=== PATIENT | female | born 1990 | race Caucasian/White ===

== ENCOUNTER 2018-05-22 18:06 | Outpatient (REF) | payer BC, SELFPAY ==
[2018-05-25 14:45] LABS: Chlamydia Result Negative; GC Result Negative; Specimen Description CERVIX
== END 2018-05-22 18:26 ==
LOC: LBN 18:06
PROVIDERS: PCP General Practice; Visit Provider Obstetrics & Gynecology
DX: Z11.3 Encounter for screening for infections with a predominantly sexual mode of transmission (principal)
CPT/HCPCS: 87491; 87591

== ENCOUNTER 2018-09-08 11:29 | Emergency (ER) | payer SELFPAY ==
[2018-09-08] VITALS (15 sets, daily range): BP systolic 94–108; BP diastolic 60–71; PULSE 86–113; RESP 8–28; TEMP 37.1; O2SAT 98–100
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
[2018-09-08] MEDS: Normal Saline 1,000 ML 1000 ML IV (12:45)
[2018-09-08 12:54] LABS: Abs Immature Grans 0.01 k/cumm (0.0-0.09); Absolute Basophil Count 0.06 k/cumm (0.0-0.2); Absolute Eosinophil Count 0.12 k/cumm (0.0-0.7); Absolute Lymphocyte Count 2.71 k/cumm (1.2-3.4); Absolute Monocyte Count 0.76 k/cumm (0.11-0.7); Absolute Neutrophil Count 6.13 k/cumm (1.2-6.7); Basophils % 0.6; Eosinophils % 1.2; HCT 41.7 % (36.0-46.0); HGB 13.9 g/dL (12.0-15.5); Immature Grans % 0.1; Lymphocytes % 27.7; Mean Corp. HGB Concentration 33.3 g/dL (32.0-36.0); Mean Corpuscular Hemoglobin 29.7 pg (27.0-33.0); Mean Corpuscular Volume 89.1 fL (80-95); Mean Platelet Volume 11.9 fL (8.0-11.0); Monocytes % 7.8; Neutrophils % 62.6; Platelet Count 250 x1000/uL (130-400); RBC 4.68 m/cumm (4.00-5.20); White Blood Cell Count 9.79 k/cumm (4.4-10.8)
[2018-09-08 13:12] LABS: ALT 18 U/L (12-78); AST 10 U/L (15-37); Albumin 3.8 g/dL (3.4-5.0); Alkaline Phosphatase 68 U/L (46-116); Anion Gap 9.2 mmol/L (3-11); BUN 9 mg/dL (7-18); Bilirubin, Total 0.3 mg/dL (0.2-1.0); CO2 26.8 mmol/L (21.0-32.0); CREATININE 0.89 mg/dL (0.55-1.02); Calcium 8.9 mg/dL (8.5-10.1); Chloride 109 mmol/L (98-107); Glucose 86 mg/dL (70-100); Potassium 4.3 mmol/L (3.5-5.1); Sodium 145 mmol/L (136-145); Total Protein 7.1 g/dL (6.4-8.2)
[2018-09-08] MEDS: Omnipaque 350 MG/ML 100 ML BTL IJ (14:36)
[2018-09-08] MEDS: Cyclobenzaprine 10 MG TAB PO (15:14)
== END 2018-09-08 16:21 | disposition home or self-care (01) ==
PROVIDERS: Emergency Provider Physician Assistant
DX: M54.6 Pain in thoracic spine (principal); M54.5 Low back pain; M25.551 Pain in right hip; M25.552 Pain in left hip; S60.131A Contusion of right middle finger with damage to nail, initial encounter; V47.5XXA Car driver injured in collision with fixed or stationary object in traffic accident, initial encounter; W23.1XXA Caught, crushed, jammed, or pinched between stationary objects, initial encounter
CPT/HCPCS: 36415; 74177; 80053; 96361; 96374; 99285; 71260; 72125; 73130; 85025; 99284; J3490

== ENCOUNTER 2019-08-02 15:02 | Outpatient (REF) | payer MEDICAID, SELFPAY ==
[2019-08-03 13:17] LABS: Chlamydia Result Negative (Negative)
[2019-08-03 15:23] LABS: GC Result Negative (Negative)
== END 2019-08-02 15:22 ==
LOC: LBN 15:02
PROVIDERS: Visit Provider Nurse Practitioner Women's Health
DX: Z11.3 Encounter for screening for infections with a predominantly sexual mode of transmission (principal)
CPT/HCPCS: 87491; 87591

== ENCOUNTER 2019-08-10 14:23 | Outpatient (REF) | payer MEDICAID, SELFPAY ==
--- NOTE | 2019-08-10 13:10 | PAPFT_PTH ---
PATIENT: Rody Cain LOC: [facility] U#:[id number] AGE/SX: 29/F ROOM: RE08/10/[address]: Jacquelyn Morin NP : 1990 BED: DIS: 08/10/2019 SPEC #: [id number] RECD: 08/10/19 18:09 STATUS: BUSTER [place] #: [id number] [place]: 08/10/19 13:[address]: Jacquelyn Morin NP DEPT: [facility] Cytology RECD BY: Marely Doe ENTERED: 08/10/19 18:09 SP TYPE: PAPFT HORACIO DR: Unknown,Unknown Tissues: 1 - CX/ENDOCX FOR PAP SMEARS Procedures: PAP THIN PREP/[facility] Screening HPV DNA PROBE Comments: [id number]
== END 2019-08-10 14:43 ==
LOC: LBN 14:23
PROVIDERS: Visit Provider Nurse Practitioner Women's Health
DX: Z12.4 Encounter for screening for malignant neoplasm of cervix (principal)
CPT/HCPCS: 88142; 87624

== ENCOUNTER 2020-06-02 15:01 | Emergency (ER) | payer BC, MEDICAID, SELFPAY ==
--- NOTE | 2020-06-02 15:04 | ED.GENADUL_ITS ---
Discharge Plan Disposition Patient Disposition: HOME Condition: Improving Discharge Details Clinical Impression: Back pain, Nausea, Elevated liver enzymes Primary Care Provider: Leoncio Morrison ED Provider: Sonia Dela Cruz Home Meds and New Rx's Prescriptions: Continued Mirena 20 mcg/24 hr (5 years) intrauterine device 1 insert IY ONCE RF: 0 pantoprazole [Protonix] 40 mg tablet,delayed release (DR/EC) 40 mg PO DAILY RF: 0 acyclovir 400 mg tablet 400 mg PO QID PRN (Reason: HSV) RF: 0 clonazepam 1 mg tablet 1 mg PO BID PRNRF: 0 lamotrigine [Lamictal] 25 mg tablet 50 mg PO DAILY RF: 0 spironolactone 25 mg tablet 25 mg PO DAILY RF: 0 dextroamphetamine-amphetamine 25 mg capsule,extended release 24hr 25 mg PO QAM MDD 1 Qty: 30 RF: 0 Discharge Instructions Instructions: Acute Nausea and Vomiting (ED), Back Pain (ED) Additional Instructions: Drink plenty of fluids and get plenty of rest. Alternate ice and heat to the affected area(s) several times daily for 20 minutes at a time. Take the Zofran that you have at home as needed directed for nausea and vomiting. You can use [id number] Lidoderm patches as needed and directed for pain. Call your primary care doctor's office on Friday morning to schedule a follow-up appointment for reevaluation and for recheck of your liver enzymes. Return immediately to the emergency department if you develop any worsening or new concerning symptoms. Stand Alone Forms: Work Release Discharge Data Discharge Physician: Sonia Dela Cruz Medical Decision Making 1520 -- 29-year-old female with a history of anxiety, depression, GERD, on Suboxone currently for previous history of opiate abuse presents for lower back pain, worse on left side with radiation to left groin, intermittent radiation to both legs, nausea, chills and fatigue since yesterday. Heart rate 100s. She is afebrile and appears nontoxic but uncomfortable. She has left lower quadrant and epigastric tenderness. She has bilateral CVA tenderness. No focal deficits. Neurovascular intact. Differential diagnosis includes UTI, pyelonephritis, ovarian cyst, diverticulitis, kidney stone, muscle strain, radiculopathy. Will place an IV, bolus IV fluids, screening labs, urinalysis, urine , CT abdomen pelvis and give Toradol and Zofran and reassess. 1640 --labs reviewed. Normal white blood cell count. Urinalysis negative for infection. Elevation of alk phos, AST and ALT compared to previous. Patient reassessed and she feels much better. CT reviewed and negative. Review of patient's medications note that spironolactone can cause hepatotoxicity. Patient states she has been on this for the past year and a half for her skin. Advised that she discuss with her primary care doctor whether to continue taking this and to recheck her liver enzymes. Discussed with patient that there does not appear to be an acute etiology for her symptoms at this time, and that they could be related to a developing viral process and to return here immediately with any worsening or new concerning symptoms such as fever, persistent vomiting or worsening pain. She feels good to go home. She requests a work note. Medical Records Medical records reviewed: Yes I reviewed the patient's medical records. Imaging Data Radiologic Study: Radiologist's impression: CT Abdomen And Pelvis With Contrast Exam date and time: 06/02/2020 4:33 PM Age: 29 years old Clinical indication: Patient HX: Lower back pain, worse on left, nausea, chills TECHNIQUE: Imaging protocol: Computed tomography of the abdomen and pelvis with intravenous contrast. COMPARISON: CT Abdomen^CAP WITH (Adult) 09/08/2018 2:32 PM FINDINGS: Liver: Unremarkable. No mass. Gallbladder and bile ducts: Status post cholecystectomy. Mild dilatation of the intrahepatic and extrahepatic bile ducts is unchanged and likely secondary to the post cholecystectomy state. Pancreas: Unremarkable. No ductal dilation. Spleen: Unremarkable. No splenomegaly. Adrenals: Normal. No mass. Kidneys and ureters: Unremarkable. No stones. No hydronephrosis. Stomach and bowel: Unremarkable. No obstruction. No mucosal thickening. Appendix: No evidence of appendicitis. Intraperitoneal space: Unremarkable. No free air. No significant fluid collection. Vasculature: Unremarkable. No abdominal aortic aneurysm. Lymph nodes: Unremarkable. No enlarged lymph nodes. Urinary bladder: Unremarkable as visualized. Reproductive: An IUD is present within the uterus. The adnexa are unremarkable. Bones/joints: No acute fracture. Soft tissues: Unremarkable. IMPRESSION: No acute abnormality. Lab Data Lab results reviewed: Yes I reviewed the patient's lab results. Labs: Laboratory Tests Range/Units 06/02/20 06/02/2006/02/20 15:45 15:46 15:46 WBC (4.4-10.8) 10^3/uL 6.33 RBC (3.93-5.22) 10^6/uL 4.44 Hgb (11.2-15.7) g/dL 13.2 Hct (36.0-46.0) % 40.3 MCV (80-95) fL 90.8 MCH (27.0-33.0) pg 29.7 MCHC (32.0-36.0) % 32.8 RDW (11.7-14.6) % 12.6 Plt Count (130-400) 10^3/uL 235 MPV (8.0-11.0) fL 11.4 H Immature Gran % 0.3 Neutrophils % 61.9 Lymphocytes % 25.6 Monocytes % 8.1 Eosinophils % 3.5 Basophils % 0.6 Nucleated RBC % % 0 Absolute Neutrophils (1.2-6.7) 10^3/uL 3.92 Absolute Lymphocytes (1.2-3.4) 10^3/uL 1.62 Absolute Monocytes (0.1-0.8) 10^3/uL 0.51 Absolute Eosinophils (0.0-0.7) 10^3/uL 0.22 Absolute Basophils (0.0-0.2) 10^3/uL 0.04 Sodium (136-145) mmol/L 140 Potassium (3.5-5.1) mmol/L 3.8 Chloride (98-107) mmol/L 105 Carbon Dioxide (21.0-32.0) mmol/L 30.7 Anion Gap (3-11) mmol/L 4.3 BUN (7-18) mg/dL 9 Creatinine (0.55-1.02) mg/dL 0.81 Estimated GFR/1.73 m2 (mL/min/1.73m2) >= 60.00 Glucose (74-106) mg/dL 99 Calcium (8.5-10.1) mg/dL 8.3 L Total Bilirubin (0.2-1.0) mg/dL 0.6 AST (15-37) U/L 211 H ALT (14-59) U/L 185 H Alkaline Phosphatase (46-116) U/L 140 H Total Protein (6.4-8.2) g/dL 6.5 Albumin (3.4-5.0) g/dL 3.4 Urine Color (Yellow) Yellow Urine Clarity (Clear) Clear Urine pH (5-8) 7.5 Ur Specific [place] (1.005-1.025) 1.020 Urine Protein (Negative) mg/dL Negative Urine Ketones (Negative) mg/dL Negative Urine Blood (Negative) Trace-intact H Urine Nitrite (Negative) Negative Urine Bilirubin (Negative) Negative Urine Urobilinogen (Up TO 0.2) EU/dL 2.0 H Ur Leukocyte Esterase (Negative) Negative Urine RBC (0-2) HPF Negative Urine WBC (0-5) HPF 0-2 Ur Epithelial Cells (Negative) HPF Many Urine Crystals (Negative) HPF Negative Urine Bacteria (Negative) HPF Few Urine Casts (Negative) LPF Negative Urine Mucus (Negative) Negative Ur Culture Indicated? No/sq. contamination Urine Glucose (Negative) mg/dL Negative HPI General Mode of arrival: ambulatory . Date/Time Provider Initiated Documentation: 06/02/20 15:02 . Limitations to Documentation: no limitations . Information obtained by: patient . HPI Narrative: Patient is a 29-year-old female w/ a h/o anxiety, depression, GERD on Suboxone for history of opiate abuse who presents for lower back pain, nausea, chills and fatigue for the past 2 days. She does admit to radiation to both of her thighs with standing and walking. She does admit to radiation around to her left groin. She has a history of chronic interstitial cystitis and has chronic urinary frequency but states this is no worse than usual. She states she is doing frequent heavy lifting at work but denies any known injury. She states she has taken Toradol in the past without any adverse reaction. She took Tylenol without relief. She denies any known fever, vomiting, vaginal discharge, leg weakness or numbness, saddle anesthesia, bowel or bladder incontinence. Related Data Home Medications Medication Instructions Recorded Confirmed levonorgestrel 20 mcg/24 hours (5 1 insert IY ONCE 05/22/18 06/02/20 yrs) 52 mg intrauterine device dextroamphetamine-amphetamine ER 25 mg PO QAM #30 cap MDD 1 11/20/18 06/02/20 25 mg 24hr capsule,extend release pantoprazole 40 mg tablet,delayed 40 mg PO DAILY 08/02/19 06/02/20 release acyclovir 400 mg tablet 400 mg PO QID PRN tab 10/20/19 06/02/20 clonazepam 1 mg tablet 1 mg PO BID PRN tab 10/20/19 06/02/20 lamotrigine 25 mg tablet 50 mg PO DAILY tab 10/20/19 06/02/20 spironolactone 25 mg tablet 25 mg PO DAILY 10/20/19 06/02/20 Previous Rx's Medication Instructions Recorded dextroamphetamine-amphetamine ER 25 mg PO QAM #30 cap MDD 1 11/20/18 25 mg 24hr capsule,extend release Allergies Allergy/AdvReac Type Severity Reaction Status Date / Time codeine Allergy Unverified 06/02/20 15:15 diphenhydramine HCl AdvReac Severe restless Verified 06/02/20 15:15 [From Benadryl] leg syndrome morphine AdvReac Severe Verified 06/02/20 15:15 NSAIDS (Non-Steroidal AdvReac Severe gastric Verified 06/02/20 15:15 Anti-Inflamma ulcer escitalopram [From Lexapro] AdvReac Intermediate nausea, Unverified 06/02/20 15:15 lip curling sertraline [From Zoloft] AdvReac Intermediate nausea, Unverified 06/02/20 15:15 lip curling fluoxetine [From Prozac] AdvReac Mild yawning Unverified 06/02/20 15:15 General SHELIA: 3 Review of Systems All systems reviewed & are unremarkable except as noted in HPI and below Constitutional Constitutional: Reports as per HPI, Denies chills and Denies fever(s) Eyes Eyes: Denies blurry vision ENT Ears, Nose, Mouth, and Throat: Denies dizziness, Denies sore throat and Denies throat swelling Cardiovascular Cardiovascular: Denies chest pain and Denies dyspnea Respiratory Respiratory: Denies cough and Denies dyspnea Gastrointestinal Gastrointestinal: Reports abdominal pain, Denies diarrhea, Reports nausea and Denies vomiting Genitourinary Genitourinary: Denies hematuria and Denies dysuria Musculoskeletal Musculoskeletal: Reports back pain and Denies numbness Integumentary/Breasts Skin/Breast: Denies lesions and Denies rash Neurologic Neurologic: Denies dizziness, Denies localized weakness and Denies numbness Allergic/Immunologic Allergic/Immunologic: Denies throat swelling [facility] Medical History (Updated 06/02/20 @ 17:27 by Sonia Dela Cruz DO) Anxiety Depression GERD (gastroesophageal reflux disease) Peptic ulcer disease Surgical History History of dental surgery S/P wrist surgery Social History Smoking/Tobacco Use Status: Current every day Tobacco: How many years used: 10 Quit status: has quit before Alcohol Intake: current Alcohol Intake frequency: a few times a month Drug use: Occasionally Substance use type: marijuana Details: using suboxone daily- take homes Do you feel safe at home: Yes Do you feel safe in your relationship?: Yes Female Reproductive History Menstrual control method: progestin IUCD (lot#[id number] exp 10/2020) History History Para 1 Hx # Term Pregnancies Multiple births Hx # Pregnancies Ectopic pregnancies AB induced 1 Hx Number of Living Children AB spontaneous Exam Const General: cooperative and no acute distress HENMT Head: normal to inspection Face and sinus: normal facial exam Eyes General: appearance normal, both eyes and all related structures Pupils: PERRL EOM: EOM intact bilaterally Neck Neck: normal visual inspection and No submandibular swelling Lymphatic: no lymphadenopathy noted Chest Chest: normal inspection of the chest and no tenderness Resp Effort & Inspection: normal respiratory effort and able to speak in complete sentences Auscultation: clear to auscultation bilaterally Cardio Rate: regular rate Rhythm: regular rhythm GI Inspection: normal to inspection Palpation: soft, not firm, not rigid and nontender Auscultation: normal bowel sounds Back/Spine/Pelvis Back: CVA tenderness (Bilaterally) Thoracic/Lumbar Spine: thoracic and lumbar spine normal to inspection Pelvis: no pain with anterior-posterior compression Skin General skin exam: no rashes or lesions noted Neuro General: patient alert, patient awake and patient oriented x3 Cognition: normal cognition Speech: speech normal Motor: muscle tone normal throughout and strength 5/5 throughout Sensory Exam: no sensory deficits noted DTR's: Rt Patellar: 1+, Lt Patellar: 1+, Rt Ankle: 1+ and Lt Ankle: 1+ Plantar Reflexes: Equivocal: bilateral (Negative Babinski bilaterally) Extrem General: normal to inspection, full ROM, capillary refill normal, no calf tenderness bilaterally and no edema Psych Appearance: grossly normal Mental Status: mental status grossly normal Speech and Movement: speech and movement normal Affect: normal affect
[2020-06-02 15:09] VITALS: BP 98/70; PULSE 106; RESP 20; TEMP 36.7; O2SAT 98
--- NOTE | 2020-06-02 15:30 | DI.CT_ITS ---
EXAM: CT ABDOMEN PELVIS W INDICATION: lower back pain, worse on left, nausea, chills. TECHNIQUE: FINDINGS: CT examination of the abdomen and pelvis was performed with a bolus infusion of 74 cc of Omnipaque 35 0. Images obtained through the lung bases are unremarkable. Liver, spleen and pancreas appear normal. Gallbladder has been surgically removed. No biliary dilatation. Adrenals and kidneys are unremarkable. Urinary bladder unremarkable. Abdominal aorta is of normal diameter and no major vascular abnormality is seen. No abdominal wall hernia. No abdominal or pelvic adenopathy. M[employer] structures appear intact with an IUD in place in the uterine midline.. Appendix is normal. No ev idence of diverticulitis or bowel obstruction. IMPRESSION: Negative examination of the abdomen and pelvis. RADIATION DOSE DELIVERED: 508.76mGy.cm Total DLP 508.76mGy.cm Total DLP
[2020-06-02] MEDS: Ondansetron 4 MG/2 ML VIAL IVP (15:55)
[2020-06-02] MEDS: Ketorolac 30 MG/ML VIAL IVP (15:55)
[2020-06-02] MEDS: Normal Saline 1,000 ML 1000 ML IV (15:56)
[2020-06-02] MEDS: Normal Saline Flush 10 ML SYR IVP (15:56)
[2020-06-02 15:59] LABS: Bilirubin Negative (Negative); Blood Trace-intact (Negative); Clarity Clear (Clear); Glucose Negative (Negative); Ketones Negative (Negative); Leukocyte Esterase Negative (Negative); Nitrite Negative (Negative); pH 7.5 (5-8)
[2020-06-02 16:06] LABS: Abs Immature Grans 0.02 10^3/uL (0.0-0.06); Absolute Basophil Count 0.04 10^3/uL (0.0-0.2); Absolute Eosinophil Count 0.22 10^3/uL (0.0-0.7); Absolute Lymphocyte Count 1.62 10^3/uL (1.2-3.4); Absolute Monocyte Count 0.51 10^3/uL (0.1-0.8); Absolute Neutrophil Count 3.92 10^3/uL (1.2-6.7); Basophils % 0.6; Eosinophils % 3.5; HCT 40.3 % (36.0-46.0); HGB 13.2 g/dL (11.2-15.7); Immature Grans % 0.3; Lymphocytes % 25.6; MCH 29.7 pg (27.0-33.0); MCHC 32.8 % (32.0-36.0); MCV 90.8 fL (80-95); MPV 11.4 fL (8.0-11.0); Monocytes % 8.1; Neutrophils % 61.9; Nucleated RBC 0 %; Platelet Count 235 10^3/uL (130-400); RBC 4.44 10^6/uL (3.93-5.22); RDW 12.6 % (11.7-14.6); RDW-SD 41.5 fL; WBC 6.33 10^3/uL (4.4-10.8)
[2020-06-02 16:09] LABS: Bacteria Few HPF (Negative); C & S Indicated? No/Sq. Contamination; Casts Negative LPF (Negative); Crystals Negative HPF (Negative); Epithelial Cells Many HPF (Negative); Mucus Negative (Negative); RBC Negative HPF (0-2); WBC 0-2 HPF (0-5)
[2020-06-02 16:20] LABS: ALT 185 U/L (14-59); AST 211 U/L (15-37); Albumin 3.4 g/dL (3.4-5.0); Alkaline Phosphatase 140 U/L (46-116); Anion Gap 4.3 mmol/L (3-11); BUN 9 mg/dL (7-18); Bilirubin, Total 0.6 mg/dL (0.2-1.0); CO2 30.7 mmol/L (21.0-32.0); CREATININE 0.81 mg/dL (0.55-1.02); Calcium 8.3 mg/dL (8.5-10.1); Chloride 105 mmol/L (98-107); Glucose 99 mg/dL (74-106); Potassium 3.8 mmol/L (3.5-5.1); Sodium 140 mmol/L (136-145); Total Protein 6.5 g/dL (6.4-8.2)
--- NOTE | 2020-06-02 16:53 | DI.VRAD_ITS ---
PROCEDURE INFORMATION: Exam: CT Abdomen And Pelvis With Contrast Exam date and time: 06/02/2020 4:33 PM Age: 29 years old Clinical indication: Patient HX: Lower back pain, worse on left, nausea, chills TECHNIQUE: Imaging protocol: Computed tomography of the abdomen and pelvis with intravenous contrast. COMPARISON: CT Abdomen^CAP WITH (Adult) 09/08/2018 2:32 PM FINDINGS: Liver: Unremarkable. No mass. Gallbladder and bile ducts: Status post cholecystectomy. Mild dilatation of the intrahepatic and extrahepatic bile ducts is unchanged and likely secondary to the post cholecystectomy state. Pancreas: Unremarkable. No ductal dilation. Spleen: Unremarkable. No splenomegaly. Adrenals: Normal. No mass. Kidneys and ureters: Unremarkable. No stones. No hydronephrosis. Stomach and bowel: Unremarkable. No obstruction. No mucosal thickening. Appendix: No evidence of appendicitis. Intraperitoneal space: Unremarkable. No free air. No significant fluid collection. Vasculature: Unremarkable. No abdominal aortic aneurysm. Lymph nodes: Unremarkable. No enlarged lymph nodes. Urinary bladder: Unremarkable as visualized. Reproductive: An IUD is present within the uterus. The adnexa are unremarkable. Bones/joints: No acute fracture. Soft tissues: Unremarkable. IMPRESSION: No acute abnormality. Dictated and Authenticated by: Koby Anne MD. Ordering:ANITA Scott MD
[2020-06-02] MEDS: Normal Saline 500 ML IV (16:54)
[2020-06-02 16:59] VITALS: BP 85/49; PULSE 80; RESP 20; O2SAT 100
== END 2020-06-02 17:30 | disposition home or self-care (01) ==
PROVIDERS: Emergency Provider Physician Assistant; PCP Counselor Mental Health
DX: R11.0 Nausea (principal); R10.32 Left lower quadrant pain; R74.8 Abnormal levels of other serum enzymes; M54.5 Low back pain
CPT/HCPCS: 80053; 81025; 96361; 96374; 96375; 99285; 74177; 81003; 81015; 85025; J1885; J2405

== ENCOUNTER 2021-04-27 09:02 | Outpatient (REF) | payer BC, MEDICAID, SELFPAY ==
[2021-04-30 17:17] LABS: COVID-19 RT-PCR Result Not Detected ((See Note))
== END 2021-04-27 09:03 | disposition home or self-care (01) ==
LOC: LBN 09:02
PROVIDERS: PCP Counselor Mental Health; Visit Provider Family Medicine
DX: Z20.822 Contact with and (suspected) exposure to COVID-19 (principal)
CPT/HCPCS: U0003

== ENCOUNTER 2021-08-16 11:46 | Emergency (ER) | payer BC, MEDICAID, SELFPAY ==
[2021-08-16] VITALS (18 sets, daily range): BP systolic 96–108; BP diastolic 50–72; PULSE 90–119; RESP 13–23; TEMP 36.8; O2SAT 100
--- NOTE | 2021-08-16 11:45 | RT.EKG_ITS ---
APPROVED REPORT Exam: Resting ECG Reason for Exam: ? seratonin syndrome Patient Location: E HR:95 bpm ECG Measurements Heart Rate 95 AXIS MN 121 P 50 QRSd 86 QRS 78 QT 387 T 69 QTc 487 Conclusion Sinus rhythm...normal P axis, V-rate 60- 99
[2021-08-16] MEDS: Normal Saline 1,000 ML 1000 ML IV (12:18)
--- NOTE | 2021-08-16 12:23 | W.ED.GENAD ---
Discharge Plan Disposition Patient Disposition: HOME Condition: Stable Discharge Details Clinical Impression: Tachycardia, Anxiousness Primary Care Provider: Leoncio Morrison ED Provider: Endy Morin Home Meds and New Rx's Prescriptions: New Vyvanse 40 mg capsule 40 mg PO DAILY Qty: 14 RF: 0 lorazepam 1 mg tablet 1 mg PO TID PRNQty: 14 RF: 0 Continued Mirena 20 mcg/24 hr (5 years) intrauterine device 1 insert IY ONCE RF: 0 acyclovir 400 mg tablet 400 mg PO QID PRN (Reason: HSV) RF: 0 clonazepam 1 mg tablet 1 mg PO BID PRNRF: 0 spironolactone 25 mg tablet 25 mg PO DAILY RF: 0 multivitamin Tablet 1 tab PO DAILY RF: 0 spironolactone 100 mg tablet 100 mg PO HS RF: 0 propranolol 60 mg Capsule,Extended Release 24 Hr 60 mg PO QHS RF: 0 Discontinued doxepin 25 mg capsule 25 - 50 mg PO HS PRNRF: 0 Vyvanse 50 mg capsule 50 mg PO DAILY RF: 0 Discharge Instructions Additional Instructions: Your blood work was reassuring, you had no findings to suggest severe serotonin syndrome I sent in a 40mg daily vyvanse prescription for you tolerated this better stop taking doxepin follow up with Dr. Morrison if you feel more ill, have difficulty breathing or persistent vomit return to the emergency department Medical Decision Making 31 yo female with hx of anxiety, adhd, gerd, who comes in with chief complaint of not feeling well, anxiety, sweats intermittently for the past week or so. She was switched from adderral to vyvanse last month and then had doxepin started at night for sleep issues. She took several doses but didn't feel it was helping her so stopped. She has had issues sleeping, feeling her skin crawl and sweats. She went to urgent care who felt she may be experiencing serotonin syndrome so was refferred here. She appears anxious on exam, stable vital signs. She has no ocular clonus, diaphoresis, spontaneous clonus or diaphoresis or tremors here so feel this is less likely or at most has very mild serotonin syndrome. I feel her symptoms could be from anxiety vs side effect of vyvanse. Will evaluate for electrolyte abnormalities and treat with ativan and reassess. pt stable and feels improved after ativan, HR now 90 and still no clonus or other abnormalities. I suspect this was more anxiety vs medication side effect and not serotonin syndrome. She is requesting to go down on her vyvanse, states she tolerated 40mg daily better so will provide this and short course of prn ativan until she sees her psychiatrist on 08/20. HAs no si/hi and doesn't require mental health screening by [facility] currently Differential Diagnosis Differential Diagnosis: anxiety, medication reaction, serotonin syndrome HPI General Mode of arrival: ambulatory. Date/Time Provider Initiated Documentation: 08/16/21 11:56. Limitations to Documentation: no limitations. Information obtained by: patient. History of Present Illness 31 year old F presents to the emergency department with the chief complaint of not sleeping well, described as moderate, Patient started experiencing this week(s) (1) and it has been intermittent. No relieving factors improve symptom(s), No exacerbating factors reported . Patient notes other (anxious, sweats). Patient did receive the following treatments prior to arrival, none Related Data Home Medications Medication Instructions Recorded Confirmed levonorgestrel 20 mcg/24 hours (7 1 insert IY ONCE 05/22/18 08/16/21 yrs) 52 mg intrauterine device acyclovir 400 mg tablet 400 mg PO QID PRN tab 10/20/19 08/16/21 clonazepam 1 mg tablet 1 mg PO BID PRN tab 10/20/19 08/16/21 spironolactone 25 mg tablet 25 mg PO DAILY 10/20/19 08/16/21 lisdexamfetamine [Vyvanse] 40 mg PO DAILY #14 cap 08/16/21 lorazepam 1 mg PO TID PRN #14 tab 08/16/21 multivitamin 1 tab PO DAILY 08/16/21 08/16/21 propranolol 60 mg PO QHS 08/16/21 08/16/21 spironolactone 100 mg PO HS 08/16/21 08/16/21 Previous Rx's Medication Instructions Recorded lisdexamfetamine [Vyvanse] 40 mg PO DAILY #14 cap 08/16/21 lorazepam 1 mg PO TID PRN #14 tab 08/16/21 Allergies Allergy/AdvReac Type Severity Reaction Status Date / Time codeine Allergy Unverified 08/16/21 12:06 diphenhydramine HCl AdvReac Severe restless Verified 08/16/21 12:06 [From Benadryl] leg syndrome morphine AdvReac Severe Verified 08/16/21 12:06 NSAIDS (Non-Steroidal AdvReac Severe gastric Verified 08/16/21 12:06 Anti-Inflamma ulcer escitalopram [From Lexapro] AdvReac Intermediate nausea, Unverified 08/16/21 12:06 lip curling sertraline [From Zoloft] AdvReac Intermediate nausea, Unverified 08/16/21 12:06 lip curling fluoxetine [From Prozac] AdvReac Mild yawning Unverified 08/16/21 12:06 General Stated Complaint: GenMedical SHELIA: 3 Review of Systems All systems reviewed & are unremarkable except as noted in HPI and below Constitutional Constitutional: Denies chills, Denies fever(s) and Denies weakness Cardiovascular Cardiovascular: Denies chest pain and Denies dyspnea Respiratory Respiratory: Denies cough and Denies dyspnea Gastrointestinal Gastrointestinal: Denies abdominal pain and Denies vomiting Musculoskeletal Musculoskeletal: Denies joint swelling Neurologic Neurologic: Denies weakness PFSH All Active Problems (Updated 08/16/21 @ 13:47 by Endy Morin MD) Tachycardia (Acute) Anxiousness (Chronic) Fatigue (Acute) Shortness of breath (Acute) Cough (Acute) Interstitial cystitis (Acute) Herpes simplex vulvovaginitis (Acute 10/24/17) Onset 09/2017. Medical History (Updated 08/16/21 @ 13:47 by Endy Morin MD) Anxiety Depression GERD (gastroesophageal reflux disease) Peptic ulcer disease Surgical History History of dental surgery S/P wrist surgery Social History Smoking/Tobacco Use Status: Current every day Tobacco Type: cigarettes Tobacco: How many years used: 10 Quit status: has quit before Smoking risk assessment performed?: Yes Alcohol Intake: current Alcohol Intake frequency: a few times a month Drug use: Occasionally Substance use type: marijuana Do you feel safe at home: Yes Do you feel safe in your relationship?: Yes Female Reproductive History Menstrual control method: progestin IUCD (lot#[id number] exp 10/2020) History History Para 1 Hx # Term Pregnancies Multiple births Hx # Pregnancies Ectopic pregnancies AB induced 1 Hx Number of Living Children AB spontaneous Exam Const General: no acute distress and anxious Orientation: alert HENMT Head: normal to inspection Ears: external ears normal General nose exam: external nose normal Mouth: moist mucous membranes Eyes General: appearance normal, both eyes and all related structures Neck Neck: normal visual inspection Resp Effort & Inspection: normal respiratory effort and able to speak in complete sentences Cardio Rate: regular rate Skin General skin exam: no rashes or lesions noted Neuro General: patient alert and patient oriented x3 Extrem General: normal to inspection Psych Mental Status: mental status grossly normal Course Vital Signs Vital signs: Vital Signs Temperature 36.8 C 08/16/21 11:57 Pulse 98 H 08/16/21 11:57 Respiratory Rate 23 08/16/21 11:57 Blood Pressure 108/72 08/16/21 11:57 Pulse Oximetry 100 08/16/21 11:57 Temperature 36.8 C 08/16/21 11:57 Temperature Source Temporal Artery Scan 08/16/21 11:57 Pulse 98 H 08/16/21 11:57 Respiratory Rate 23 08/16/21 11:57 Respiratory Effort Non-Labored 08/16/21 12:04 Blood Pressure 108/72 08/16/21 11:57 Blood Pressure Position Supine 08/16/21 11:57 Pulse Oximetry 100 08/16/21 11:57 Oxygen Delivery Method Room Air 08/16/21 11:57 Oxygen Flow Rate 0 08/16/21 11:57 Pain Level 0 08/16/21 11:57 PAWSS Have you Been Recently Intoxicated or Drunk Within the Last 30 days?: No Have you Ever Experienced Previous Episodes of Alcohol Withdrawal?: No Have you ever Experienced Withdrawal Seizures?: No Have you ever Experienced Delirium Tremens(DT)s?: No Have you ever undergone Alcohol Rehabilitation Treatment (i.e, inpt ot outpatient treatment programs)?: No Have you ever Experienced Blackouts?: No Have you ever Combined Alcohol with other Downers within the last 90 days?: No Have you ever Combined Alcohol with any other Substance of Abuse during the last 90 days?: No Positive Blood Alcohol level on Presentation? [PCS.BAL]: No Evidence of Increased Autonomic Activity (i.e. HR>120, tremor, sweating, agitation, nausea)?: No Result: 0
[2021-08-16 12:31] LABS: Abs Immature Grans 0.03 10^3/uL (0.0-0.06); Absolute Basophil Count 0.07 10^3/uL (0.0-0.2); Absolute Eosinophil Count 0.21 10^3/uL (0.0-0.7); Absolute Lymphocyte Count 2.49 10^3/uL (1.2-3.4); Absolute Monocyte Count 0.58 10^3/uL (0.1-0.8); Absolute Neutrophil Count 5.55 10^3/uL (1.2-6.7); Basophils % 0.8; Eosinophils % 2.4; HCT 42.1 % (36.0-46.0); HGB 13.8 g/dL (11.2-15.7); Immature Grans % 0.3; Lymphocytes % 27.9; MCH 29.2 pg (27.0-33.0); MCHC 32.8 % (32.0-36.0); MPV 10.4 fL (8.0-11.0); Monocytes % 6.5; Neutrophils % 62.1; Nucleated RBC 0 %; Platelet Count 319 10^3/uL (130-400); RBC 4.73 10^6/uL (3.93-5.22); RDW 13.3 % (11.7-14.6); RDW-SD 43.6 fL; WBC 8.93 10^3/uL (4.4-10.8)
[2021-08-16 12:52] LABS: Salicylate < 2.8 mg/dL (<2.8)
[2021-08-16 12:54] LABS: ALT 27 U/L (14-59); AST 14 U/L (15-37); Acetaminophen < 2 ug/mL (10-30); Albumin 3.8 g/dL (3.4-5.0); Alkaline Phosphatase 59 U/L (46-116); Anion Gap 7.3 mmol/L (3-11); BUN 10 mg/dL (7-18); Bilirubin, Total 0.6 mg/dL (0.2-1.0); CO2 27.7 mmol/L (21.0-32.0); CREATININE 0.7 mg/dL (0.55-1.02); Calcium 8.7 mg/dL (8.5-10.1); Chloride 104 mmol/L (98-107); Creatine Kinase 55 U/L (26-192); Glucose 95 mg/dL (74-106); Magnesium 2.2 mg/dL (1.8-2.4); Potassium 3.9 mmol/L (3.5-5.1); Sodium 139 mmol/L (136-145); TSH (W/Ref FT4) 1.49 uIU/mL (0.36-3.74); Total Protein 7.1 g/dL (6.4-8.2)
[2021-08-16] MEDS: LORazepam 2 MG/ML VIAL 1 MG IVP (12:54)
[2021-08-16] MEDS: Normal Saline Flush 10 ML SYR IVP (12:55)
[2021-08-16 13:05] LABS: ETHANOL BLOOD < 3.0 mg/dL (<10)
[2021-08-16] MEDS: Ondansetron O.D.T. 4 MG TABEF PO (14:06)
== END 2021-08-16 14:07 | disposition home or self-care (01) ==
PROVIDERS: Emergency Provider Emergency Medicine; PCP Counselor Mental Health
DX: R00.0 Tachycardia, unspecified (principal); F41.9 Anxiety disorder, unspecified; R61 Generalized hyperhidrosis; F32.A Depression, unspecified
CPT/HCPCS: 80053; 80307; 81025; 82550; 93005; 96361; 96374; 99284; 80320; 80329; 83735; 84443; 85025; 93010; J2060

== ENCOUNTER 2021-12-13 17:27 | Emergency (ER) | payer BC, MEDICAID, SELFPAY ==
[2021-12-13] VITALS (8 sets, daily range): BP systolic 89–101; BP diastolic 58–73; PULSE 85–111; RESP 13–18; TEMP 36.2–36.6; O2SAT 98–100
--- NOTE | 2021-12-13 17:15 | RT.EKG_ITS ---
APPROVED REPORT Exam: Resting ECG Reason for Exam: chest pain Patient Location: E HR:118 bpm ECG Measurements Heart Rate 118 AXIS NC 141 P 69 QRSd 69 QRS 64 QT 337 T 59 QTc 473 Conclusion Sinus tachycardia...rate> 99. Sinus. Normal axis. No STEMI. I have reviewed and interpreted ECG and agree with software generated interpretation.
--- NOTE | 2021-12-13 17:57 | W.ED.GENAD ---
Discharge Plan Disposition Patient Disposition: HOME Condition: Improving Discharge Details Clinical Impression: Palpitations, Anxiety Primary Care Provider: Leoncio Morrison ED Provider: Sonia Dela Cruz Home Meds and New Rx's Prescriptions: Continued Mirena 20 mcg/24 hr (5 years) intrauterine device 1 insert IY ONCE 0RF acyclovir 400 mg tablet 400 mg PO QID PRN (Reason: HSV) 0RF Label Comments: not taking clonazepam 1 mg tablet 1 mg PO BID PRN0RF Label Comments: not taking spironolactone 25 mg tablet 25 mg PO DAILY 0RF Label Comments: not taking multivitamin Tablet 1 tab PO DAILY 0RF spironolactone 100 mg tablet 100 mg PO HS 0RF Label Comments: not taking propranolol 60 mg Capsule,Extended Release 24 Hr 60 mg PO QAM 0RF lorazepam 1 mg tablet 1 mg PO PRN PRN0RF Discharge Instructions Instructions: Heart Palpitations (ED) Additional Instructions: Your lab work, EKG and imaging today is reassuring and shows no evidence of acute concerning or significant findings. Your symptoms may be due to dehydration, stress, anxiety, etc. An order for an outpatient Holter monitor has been placed and you will be called by respiratory therapy for placement of this monitor. You have been placed on care management list to arrange for a follow-up appointment with a primary care doctor to establish care and for reevaluation and for consideration for referral to Dr. Osman for your additional complaint of chronic d?j? vu . You can continue to take your Ativan and propranolol that you have at home as needed and directed for your symptoms. Return immediately to the emergency department if you develop any worsening or new concerning symptoms. Stand Alone Forms: Work Release Referrals: Dalia Osman MD [ [facility] STAFF PHYSICIAN] - Discharge Orders Other Ambulatory Orders: Holter Monitor (Routine) Timeframe: 1 Week Facility: [facility] - Location: Respiratory Therapy Ordered By: Sonia Dela Cruz Discharge Data Discharge Date/Time-TO BE ENTERED AT DEPARTURE: 12/13/21 21:31 Discharge Physician: Sonia Dela Cruz Medical Decision Making 31-year-old female with a history of known tachycardia, PVCs, PACs, anxiety, depression, GERD who presents for sudden onset of palpitations and shortness of breath that occurred while getting in her car just prior to arrival. She states her symptoms resolved on arrival to the ED but now her palpitations are returning. Heart rate 110s on arrival. EKG noted a rate of 118, sinus, normal axis, no STEMI and nondiagnostic. Patient is tearful and appears significantly anxious on exam. Her lungs are otherwise clear. She has no lower extremity swelling. Differential diagnosis includes anxiety, dehydration, electrolyte abnormality, PE, arrhythmia. Will place an IV, bolus IV fluids, screening labs, D-dimer, and chest x-ray and give Ativan and reassess. Labs and imaging reviewed. D-dimer negative. Troponin negative x 2. TSH within normal limits. CXR negative. Patient reassessed and she felt better. She states she has Ativan and propranolol at home. She states she takes her Ativan as needed for anxiety but has not taken her propranolol in some time. She states she had been seeing Dr. Weber but does not currently have a PCP. Will place patient on care management list to arrange for a follow-up appointment with the primary care doctor to establish care and for reevaluation of her tachycardia and anxiety. A 48-hour Holter monitor order was placed and she will follow-up with respiratory therapy for this. Patient also stated just prior to discharge that she has felt chronic feelings of d?j? vu for the past several years and states she has googled this and found out this could be temporal lobe seizures . Discussed that her symptoms has been a time does not appear consistent with any acute central neurologic process but she was given Dr. Osman's contact information and advised to discuss these symptoms further with her primary care doctor for consideration to referral to neurology. Usual and customary return precautions given prior to discharge. Medical Records Medical records reviewed: Yes I reviewed the patient's medical records. Imaging Data Radiologic Study: Radiologist's impression: XR Chest Exam date and time: 12/13/2021 7:40 PM Age: 31 years old Clinical indication: Other: Tachycardia, R/O acute disease TECHNIQUE: Imaging protocol: XR of the chest. Views: 2 views. COMPARISON: CT Abdomen^CAP WITH (Adult) 09/08/2018 2:32 PM FINDINGS: Lungs: Unremarkable. No consolidation. Pleural spaces: Unremarkable. No pleural effusion. No pneumothorax. Heart/Mediastinum: Unremarkable. No cardiomegaly. Bones/joints: Unremarkable. Soft tissues: Breast shadows noted bilaterally. IMPRESSION: No acute cardiopulmonary abnormality. Lab Data Lab results reviewed: Yes I reviewed the patient's lab results. Labs: Laboratory Tests Range/Units 12/13/21 12/13/21 12/13/21 18:00 18:00 18:00 WBC (4.4-10.8) 10^3/uL 7.30 RBC (3.93-5.22) 10^6/uL 4.58 Hgb (11.2-15.7) g/dL 13.4 Hct (36.0-46.0) % 41.1 MCV (80-95) fL 89.7 MCH (27.0-33.0) pg 29.3 MCHC (32.0-36.0) % 32.6 RDW (11.7-14.6) % 12.6 Plt Count (130-400) 10^3/uL 297 MPV (8.0-11.0) fL 10.8 Immature Gran % 0.1 Neutrophils % 49.6 Lymphocytes % 39.5 Monocytes % 6.3 Eosinophils % 3.3 Basophils % 1.2 Nucleated RBC % (0.0-0.3) % 0.0 Absolute Neutrophils (1.2-6.7) 10^3/uL 3.62 Absolute Lymphocytes (1.2-3.4) 10^3/uL 2.88 Absolute Monocytes (0.1-0.8) 10^3/uL 0.46 Absolute Eosinophils (0.0-0.7) 10^3/uL 0.24 Absolute Basophils (0.0-0.2) 10^3/uL 0.09 D-Dimer (<500) ng/mlFEU 82 Sodium (136-145) mmol/L 141 Potassium (3.5-5.1) mmol/L 4.4 Chloride (98-107) mmol/L 104 Carbon Dioxide (21.0-32.0) mmol/L 27.8 Anion Gap (3-11) mmol/L 9.2 BUN (7-18) mg/dL 20 H Creatinine (0.55-1.02) mg/dL 0.9 Estimated GFR/1.73 m2 (mL/min/1.73m2) >= 60.00 Glucose (74-106) mg/dL 84 Calcium (8.5-10.1) mg/dL 8.8 Magnesium (1.8-2.4) mg/dL 2.3 Total Bilirubin (0.2-1.0) mg/dL 0.3 AST (15-37) U/L 15 ALT (14-59) U/L 31 Alkaline Phosphatase (46-116) U/L 71 Troponin I (<or=60) ng/L < 50 Total Protein (6.4-8.2) g/dL 7.6 Albumin (3.4-5.0) g/dL 4.1 TSH (0.36-3.74) uIU/mL Range/Units 12/13/21 18:00 WBC (4.4-10.8) 10^3/uL RBC (3.93-5.22) 10^6/uL Hgb (11.2-15.7) g/dL Hct (36.0-46.0) % MCV (80-95) fL MCH (27.0-33.0) pg MCHC (32.0-36.0) % RDW (11.7-14.6) % Plt Count (130-400) 10^3/uL MPV (8.0-11.0) fL Immature Gran % Neutrophils % Lymphocytes % Monocytes % Eosinophils % Basophils % Nucleated RBC % (0.0-0.3) % Absolute Neutrophils (1.2-6.7) 10^3/uL Absolute Lymphocytes (1.2-3.4) 10^3/uL Absolute Monocytes (0.1-0.8) 10^3/uL Absolute Eosinophils (0.0-0.7) 10^3/uL Absolute Basophils (0.0-0.2) 10^3/uL D-Dimer (<500) ng/mlFEU Sodium (136-145) mmol/L Potassium (3.5-5.1) mmol/L Chloride (98-107) mmol/L Carbon Dioxide (21.0-32.0) mmol/L Anion Gap (3-11) mmol/L BUN (7-18) mg/dL Creatinine (0.55-1.02) mg/dL Estimated GFR/1.73 m2 (mL/min/1.73m2) Glucose (74-106) mg/dL Calcium (8.5-10.1) mg/dL Magnesium (1.8-2.4) mg/dL Total Bilirubin (0.2-1.0) mg/dL AST (15-37) U/L ALT (14-59) U/L Alkaline Phosphatase (46-116) U/L Troponin I (<or=60) ng/L Total Protein (6.4-8.2) g/dL Albumin (3.4-5.0) g/dL TSH (0.36-3.74) uIU/mL 0.63 ECG Data Attestation: I personally reviewed and interpreted this ECG (s) as follows: Interpretation: rate of 118, sinus, normal axis, no STEMI. HPI General Mode of arrival: ambulatory. Date/Time Provider Initiated Documentation: 12/13/21 17:28. Limitations to Documentation: no limitations. Information obtained by: patient. HPI Narrative: Patient is a 31-year-old female with a history of tachycardia, anxiety, depression, GERD, known PVCs and PACs who presents with an episode of tachycardia and shortness of breath that started while getting her car at at work prior to arrival. Patient states she felt fine earlier today. She states this evening when she got into her car she felt sudden onset of fast heart rate, sweating and feeling short of breath. She states this was near resolved by the time she came to the emergency department. She does admit to some return of palpitations at this time. She does admit to some pain within her left arm but denies any chest pain. She states she has had a history of similar symptoms in the past but states this is more intense compared to previous. She denies any excessive caffeine use and states she has not taken in caffeine today. She denies any alcohol or other drug use. She denies any fever, cough, vomiting, diarrhea or any other recent illness. She states she is vaccinated for COVID and did contract Covid in August but states her symptoms were sore throat, headache and cough and denies any significant tachycardia at that time. Related Data Home Medications Medication Instructions Recorded Confirmed levonorgestrel 20 mcg/24 hours (7 1 insert IY ONCE 05/22/18 12/13/21 yrs) 52 mg intrauterine device (Mirena) acyclovir 400 mg tablet 400 mg PO QID PRN tab 10/20/19 08/16/21 clonazepam 1 mg tablet 1 mg PO BID PRN tab 10/20/19 08/16/21 spironolactone 25 mg tablet 25 mg PO DAILY 10/20/19 08/16/21 multivitamin 1 tab PO DAILY 08/16/21 12/13/21 propranolol 60 mg capsule,24 60 mg PO QAM 08/16/21 12/13/21 hr,extended release spironolactone 100 mg tablet 100 mg PO HS 08/16/21 08/16/21 lorazepam 1 mg tablet 1 mg PO PRN PRN 12/13/21 12/13/21 Allergies Allergy/AdvReac Type Severity Reaction Status Date / Time codeine Allergy Unverified 12/13/21 17:42 diphenhydramine HCl AdvReac Severe restless Verified 12/13/21 17:42 [From Benadryl] leg syndrome morphine AdvReac Severe Verified 12/13/21 17:42 NSAIDS (Non-Steroidal AdvReac Severe gastric Verified 12/13/21 17:42 Anti-Inflamma ulcer escitalopram [From Lexapro] AdvReac Intermediate nausea, Unverified 12/13/21 17:42 lip curling sertraline [From Zoloft] AdvReac Intermediate nausea, Unverified 12/13/21 17:42 lip curling fluoxetine [From Prozac] AdvReac Mild yawning Unverified 12/13/21 17:42 General Stated Complaint: Palpitatns SHELIA: 2 Review of Systems All systems reviewed & are unremarkable except as noted in HPI and below Constitutional Constitutional: Reports as per HPI, Denies chills, Denies excessive sweating, Denies fatigue and Denies fever(s) Eyes Eyes: Denies blurry vision ENT Ears, Nose, Mouth, and Throat: Denies dizziness, Denies sore throat and Denies throat swelling Cardiovascular Cardiovascular: Denies chest pain, Reports rapid heart rate and Reports dyspnea Respiratory Respiratory: Denies cough and Reports dyspnea Gastrointestinal Gastrointestinal: Denies abdominal pain, Denies diarrhea and Denies vomiting Genitourinary Genitourinary: Denies hematuria and Denies dysuria Musculoskeletal Musculoskeletal: Denies back pain and Denies numbness Integumentary/Breasts Skin/Breast: Denies lesions and Denies rash Neurologic Neurologic: Denies behavioral changes, Denies confusion, Denies dizziness, Denies localized weakness and Denies numbness Psychiatric Psychiatric: Denies behavioral changes, Denies confusion and Denies depression Endocrine Endocrine: Denies excessive sweating and Denies fatigue Hematologic/Lymphatic Hematologic/Lymphatic: Denies easy bruising and Denies lymphadenopathy Allergic/Immunologic Allergic/Immunologic: Denies throat swelling PFSH All Active Problems (Updated 12/17/21 @ 16:57 by Sonia Dela Cruz DO) Tachycardia (Acute) Anxiousness (Chronic) Palpitations (Acute) Anxiety (Chronic) Fatigue (Acute) Shortness of breath (Acute) Cough (Acute) Interstitial cystitis (Acute) Herpes simplex vulvovaginitis (Acute 10/24/17) Onset 09/2017. Medical History (Updated 12/17/21 @ 16:57 by Sonia Dela Cruz DO) Anxiety Depression GERD (gastroesophageal reflux disease) Peptic ulcer disease Surgical History History of dental surgery S/P wrist surgery Social History Smoking/Tobacco Use Status: Current every day Tobacco Type: cigarettes Tobacco: How many years used: 10 Quit status: has quit before Smoking risk assessment performed?: Yes Alcohol Intake: current Alcohol Intake frequency: a few times a month Drug use: Occasionally Substance use type: marijuana Details: long time since any alcohol edible last weekend Do you feel safe at home: Yes Do you feel safe in your relationship?: Yes Female Reproductive History Menstrual control method: progestin IUCD (lot#[id number] exp 10/2020) History History Para 1 Hx # Term Pregnancies Multiple births Hx # Pregnancies Ectopic pregnancies AB induced 1 Hx Number of Living Children AB spontaneous Exam Const General: cooperative, healthy appearing and anxious Orientation: alert, awake and oriented x3 HENMT Head: normal to inspection Ears: hearing grossly normal bilaterally, external ears normal and TM's normal bilaterally General nose exam: external nose normal Face and sinus: normal facial exam Mouth: oral mucosae normal Teeth and gingiva: dentition normal Throat: posterior oropharynx normal Eyes General: appearance normal, both eyes and all related structures Eyelids: eyelids normal Pupils: PERRL EOM: EOM intact bilaterally Neck Neck: normal visual inspection Lymphatic: no lymphadenopathy noted Chest Chest: normal inspection of the chest Resp Effort & Inspection: normal respiratory effort and able to speak in complete sentences Auscultation: clear to auscultation bilaterally Cardio Rate: tachycardic Rhythm: regular rhythm GI Inspection: normal to inspection Palpation: soft, not firm, no guarding, no hepatosplenomegaly, no masses and nontender Auscultation: hypoactive bowel sounds Back/Spine/Pelvis Back: no CVA tenderness Skin General skin exam: no rashes or lesions noted Neuro General: patient alert and patient awake Cognition: normal cognition Speech: speech normal Gait: normal gait Motor: muscle tone normal throughout Sensory Exam: no sensory deficits noted Extrem General: normal to inspection, full ROM, capillary refill normal and no edema Psych Appearance: grossly normal Mental Status: mental status grossly normal Speech and Movement: speech and movement normal Affect: normal affect Thought Process: normal Course Vital Signs Vital signs: Vital Signs Temperature 97.2 F L 12/13/21 17:30 Pulse 109 H 12/13/21 17:30 Respiratory Rate 16 12/13/21 17:30 Blood Pressure 101/73 12/13/21 17:30 Pulse Oximetry 100 12/13/21 17:30 Temperature 97.2 F L 12/13/21 17:30 Temperature Source Skin 12/13/21 17:30 Pulse 109 H 12/13/21 17:30 Respiratory Rate 16 12/13/21 17:30 Respiratory Effort 12/13/21 17:46 Blood Pressure 101/73 12/13/21 17:30 Blood Pressure Position Sitting 12/13/21 17:30 Pulse Oximetry 100 12/13/21 17:30 Oxygen Delivery Method Room Air 12/13/21 17:30 Oxygen Flow Rate 0 12/13/21 17:30 Pain Level 4 12/13/21 17:30 PAWSS Have you Been Recently Intoxicated or Drunk Within the Last 30 days?: No Have you Ever Experienced Previous Episodes of Alcohol Withdrawal?: No Have you ever Experienced Withdrawal Seizures?: No Have you ever Experienced Delirium Tremens(DT)s?: No Have you ever undergone Alcohol Rehabilitation Treatment (i.e, inpt ot outpatient treatment programs)?: No Have you ever Experienced Blackouts?: No Have you ever Combined Alcohol with other Downers within the last 90 days?: No Have you ever Combined Alcohol with any other Substance of Abuse during the last 90 days?: No Positive Blood Alcohol level on Presentation? [PCS.BAL]: No Evidence of Increased Autonomic Activity (i.e. HR>120, tremor, sweating, agitation, nausea)?: No Result: 0
[2021-12-13 18:17] LABS: Abs Immature Grans 0.01 10^3/uL (0.0-0.06); Absolute Basophil Count 0.09 10^3/uL (0.0-0.2); Absolute Eosinophil Count 0.24 10^3/uL (0.0-0.7); Absolute Lymphocyte Count 2.88 10^3/uL (1.2-3.4); Absolute Monocyte Count 0.46 10^3/uL (0.1-0.8); Absolute Neutrophil Count 3.62 10^3/uL (1.2-6.7); Basophils % 1.2; Eosinophils % 3.3; HCT 41.1 % (36.0-46.0); HGB 13.4 g/dL (11.2-15.7); Immature Grans % 0.1; Lymphocytes % 39.5; MCH 29.3 pg (27.0-33.0); MCHC 32.6 % (32.0-36.0); MCV 89.7 fL (80-95); MPV 10.8 fL (8.0-11.0); Monocytes % 6.3; Neutrophils % 49.6; Platelet Count 297 10^3/uL (130-400); RBC 4.58 10^6/uL (3.93-5.22); RDW 12.6 % (11.7-14.6); RDW-SD 41.1 fL
[2021-12-13 18:34] LABS: ALT 31 U/L (14-59); AST 15 U/L (15-37); Albumin 4.1 g/dL (3.4-5.0); Alkaline Phosphatase 71 U/L (46-116); Anion Gap 9.2 mmol/L (3-11); BUN 20 mg/dL (7-18); Bilirubin, Total 0.3 mg/dL (0.2-1.0); CO2 27.8 mmol/L (21.0-32.0); CREATININE 0.9 mg/dL (0.55-1.02); Calcium 8.8 mg/dL (8.5-10.1); Chloride 104 mmol/L (98-107); Glucose 84 mg/dL (74-106); Magnesium 2.3 mg/dL (1.8-2.4); Potassium 4.4 mmol/L (3.5-5.1); Sodium 141 mmol/L (136-145); Total Protein 7.6 g/dL (6.4-8.2); Troponin I < 50 ng/L (<or=60)
--- NOTE | 2021-12-13 18:45 | DI.RAD_ITS ---
Exam(s) XR CHEST 2V PA LATERAL EXAM: XR CHEST 2V PA LATERAL CLINICAL HISTORY: tachycardia, r/o acute disease TECHNIQUE: 2D digital imaging was performed of the chest. Two images were obtained. PA and lateral views were obtained. COMPARISON: CR ABD FLAT UPRIGHT PA CHEST from 07/29/2011 FINDINGS: MEDIASTINUM: Normal. HEART: Normal. PULMONARY VASCULATURE: Normal. LUNGS: Clear. PLEURAL SPACE: No pleural effusion or pneumothorax. BONE:Within normal limits for the patient's age. OTHER FINDINGS:Normal. IMPRESSION: No acute pulmonary findings. DATA REPOSITORY: RADIATION DOSE DELIVERED:
[2021-12-13 18:49] LABS: D-Dimer 82 ng/mlFEU (<500)
[2021-12-13] MEDS: LORazepam 1 MG TAB PO (19:30)
[2021-12-13 20:10] LABS: TSH (W/Ref FT4) 0.63 uIU/mL (0.36-3.74)
--- NOTE | 2021-12-13 20:11 | NUR.NOTE ---
requisition faxed to [facility] to have 48 hour Holter Monitor placed within a week.Nursing Note:
[2021-12-13] MEDS: Normal Saline 1,000 ML 1000 ML IV (20:20)
[2021-12-13 20:42] LABS: Troponin I < 50 ng/L (<or=60)
--- NOTE | 2021-12-13 20:51 | DI.VRAD_ITS ---
PROCEDURE INFORMATION: Exam: XR Chest Exam date and time: 12/13/2021 7:40 PM Age: 31 years old Clinical indication: Other: Tachycardia, R/O acute disease TECHNIQUE: Imaging protocol: XR of the chest. Views: 2 views. COMPARISON: CT Abdomen^CAP WITH (Adult) 09/08/2018 2:32 PM FINDINGS: Lungs: Unremarkable. No consolidation. Pleural spaces: Unremarkable. No pleural effusion. No pneumothorax. Heart/Mediastinum: Unremarkable. No cardiomegaly. Bones/joints: Unremarkable. Soft tissues: Breast shadows noted bilaterally. IMPRESSION: No acute cardiopulmonary abnormality. Dictated and Authenticated by: Endy Fabian MD. Ordering:ANITA Scott MD
== END 2021-12-13 21:31 | disposition home or self-care (01) ==
PROVIDERS: Emergency Provider Physician Assistant; PCP Counselor Mental Health
DX: F41.9 Anxiety disorder, unspecified; R00.2 Palpitations; R07.9 Chest pain, unspecified; R06.02 Shortness of breath
CPT/HCPCS: 36415; 80053; 81025; 93005; 96360; 99284; 71046; 83735; 84443; 84484; 85025; 85379; 93010

== ENCOUNTER 2021-12-26 05:13 | Outpatient (RCR) | payer BC, MEDICAID, SELFPAY ==
--- NOTE | 2021-12-26 10:30 | HOLTER_ITS ---
APPROVED REPORT Conclusion This is a 48-hour Holter monitor Predominant rhythm was sinus with an average heart rate of 98. Minimum was 72, maximum 145 There were rare atrial and ventricular ectopic beats There was no atrial fibrillation, ventricular tachycardia, SVT, high-grade AV block or pauses greater than 3 seconds No patient diary was returned
== END 2021-12-29 23:59 | disposition home or self-care (01) ==
LOC: RT 05:13
PROVIDERS: PCP Counselor Mental Health; Visit Provider Physician Assistant
DX: R00.2 Palpitations (principal); R41.9 Unspecified symptoms and signs involving cognitive functions and awareness; R00.0 Tachycardia, unspecified
CPT/HCPCS: 93225

== ENCOUNTER 2023-02-22 18:48 | Emergency (ER) | payer BC, MEDICAID, SELFPAY ==
--- NOTE | 2023-02-22 18:45 | RT.EKG_ITS ---
APPROVED REPORT Exam: Resting ECG Reason for Exam: heart attack Patient Location: E HR:88 bpm ECG Measurements Heart Rate 88 AXIS CO 132 P 41 QRSd 73 QRS 73 QT 384 T 67 QTc 464 Conclusion Sinus rhythm...normal P axis, V-rate 60- 99
[2023-02-22 18:50] VITALS: BP 103/54; PULSE 103; RESP 24; TEMP 36.8; O2SAT 98
[2023-02-22 18:55] VITALS: RESP 16
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
[2023-02-22] MEDS: clonazePAM 0.5 MG TAB 1 MG PO (19:16)
--- NOTE | 2023-02-22 19:23 | NUR.NOTE ---
Pt has lost old PCP and needs a new one, within one week.
[2023-02-22 19:54] VITALS: BP 83/44; PULSE 86; RESP 18; TEMP 36.9; O2SAT 99
== END 2023-02-22 19:57 | disposition home or self-care (01) ==
LOC: ER 20:05
PROVIDERS: Emergency Provider Emergency Medicine; PCP Counselor Mental Health
DX: R07.9 Chest pain, unspecified (principal); F41.9 Anxiety disorder, unspecified
CPT/HCPCS: 93005; 99283; 93010; 99284

== ENCOUNTER 2023-05-06 02:41 | Outpatient (CLI) | payer BC, MEDICAID, SELFPAY ==
--- NOTE | 2023-05-11 21:44 | PDOC.EEG_ITS ---
Neurology EEG EEG: [facility] Department of Neurology LONG-TERM AMBULATORY EEG REPORT Date of Recordin05/06/23 at 15:41:42 to 05/07/23 at 08:58:29 Interpreting Physician: Dr. Dalia Osman PCP/Referring Provider: Sunshine Kelly NP Reason for study: Mr. Cain has a several year history of recurrent spells of bonny vu concerning for seizure. Current Medications: Home Medications Medication Instructions Recorded Confirmed Type levonorgestrel 21 mcg/24 hours (8 1 insert intrauterine ONCE 05/22/18 04/29/23 History yrs) 52 mg intrauterine device (Mirena) acyclovir 400 mg tablet 400 mg PO QID PRN HSV 10/20/19 04/29/23 History multivitamin 1 tab PO DAILY 08/16/21 04/29/23 History propranolol 60 mg capsule,24 60 mg PO QAM PRN 08/16/21 04/29/23 History hr,extended release dextroamphetamine-amphetamine ER 30 mg PO DAILY PRN 02/22/23 04/29/23 History 30 mg 24hr capsule,extend release clonazepam 1 mg tablet 1 mg PO BID PRN flight anxiety #5 04/07/23 04/29/23 Rx tabs buprenorphine 2 mg-naloxone 0.5 mg 2 film buccal DAILY #56 ea 04/22/23 04/29/23 Rx sublingual film (Suboxone) Saccharomyces boulardii 250 mg 250 mg PO BID 04/29/23 04/29/23 History capsule (Digest Probiotic (S.boulardii)) adapalene 0.1 % topical gel 1 applic topical QHS 04/29/23 04/29/23 History (Differin) lorazepam 0.5 mg tablet 0.5 mg PO ONCE PRN 04/29/23 04/29/23 Rx anxiety/claustrophobia #2 tabs METHODS: An 18-channel digitized electroencephalogram was recorded in the ambulatory setting with video. The 10/20 international system of electrode placement was used and bipolar and referential electrode montages were recorded. In addition to EEG the patient was monitored for EKG and by video. Activation procedures of photic stimulation and hyperventilation were performed if applicable. The duration of the recording was ~17 hours. DESCRIPTION OF EEG: Waking background activity: During maximal wakefulness a 9-Hz posterior background rhythm was present which was well-modulated, symmetrical, reactive to eye opening, and of moderate voltage. Faster frequencies were present in the bilateral anterior head regions. There was a normal anterior-posterior voltage gradient. Drowsy and sleeping background activity: During drowsiness, there was attenuation of the posterior dominant background rhythm and vertex waves. Normal stage II and III sleep was present with symmetrical sleep spindles, K- complexes, and vertex waves with slowing of the background rhythm to delta/theta frequencies. REM sleep manifested by rapid lateral eye movements and faster background rhythms was recorded. Arousal was unremarkable. Interictal abnormalities: none. Ictal findings: No events recorded. Activating Procedures: Photic stimulation was performed which produced a symmetrical posterior driving response at various flash frequencies. Hyperventilation was performed with moderate effort and produced significant physiological slowing of the background. EKG: EKG revealed normal sinus rhythm. INTERPRETATION: This long-term EEG is normal during the awake and sleep states as well as during the activation procedures. No events were captured. PRIOR EEG: none CLINICAL CORRELATION: No focal regions of cerebral dysfunction or epileptiform activity was present. Epilepsy remains a clinical diagnosis and a normal EEG does not rule out epilepsy. Clinical correlation is advised. Dalia Osman MD
== END 2023-05-06 02:42 | disposition home or self-care (01) ==
LOC: RT 02:41
PROVIDERS: PCP Nurse Practitioner; Visit Provider Psychiatry & Neurology Neurology
DX: R41.840 Attention and concentration deficit (principal)
CPT/HCPCS: 95714

== ENCOUNTER → 2023-05-26 00:34 | Outpatient (CLI) | payer BC, MEDICAID, SELFPAY ==
--- NOTE | 2023-05-26 08:00 | DI.MRI_ITS ---
Exam(s) MR BRAIN WO EXAM: MR BRAIN WO CLINICAL HISTORY: ?temporal lobe epilepsy,nonspecific paroxysmal spell,R40.4 TECHNIQUE: Multiplanar multisequence MRI of the brain was performed. COMPARISON: No exams were available for comparison FINDINGS: CEREBRAL PARENCHYMA: There is no evidence of intracranial hemorrhage, mass effect, or shift of midline structures. There are no extra-axial fluid collections. Ventricles are not enlarged or shifted. No evidence of cerebe llar tonsillar ectopia. There is no significant focal signal abnormality in the cerebellar hemispheres nor within the ingrid, m idbrain, and thalami. There is no abnormal signal abnormality in the periventricular white matter. No abnormal signal in the temporal lobes/amygdalae. No evidence of obvious mesial temporal sclerosis. PITUITARY GLAND: No mass nor parasellar abnormality. No obvious abnormality in the cavernous sinuses. FLOW VOIDS: The expected flow void are noted. No evidence of obvious aneurysm nor obvious vascular ma lformation. PARANASAL SINUSES: There is a post inflammatory retention cyst in the anterior floor of the right max illary sinus measuring 2.3 by 2.3 by 1.5 cm. There is no associated fluid level. Left maxillary sin us is clear. Mild mucosal thickening noted in the sphenoid sinuses. Frontal sinuses are hypoplastic . ORBITS: No obvious findings. IMPRESSION: No significant intracranial findings on this noninfused MRI scan of the brain. Post inflammatory retention cysts noted in the right maxillary sinus measuring 23 x 23 x 15 mm. No a ssociated fluid level. DATA REPOSITORY:
== END ==
PROVIDERS: PCP Nurse Practitioner; Visit Provider Psychiatry & Neurology Neurology
DX: R40.4 Transient alteration of awareness (principal)
CPT/HCPCS: 70551

== ENCOUNTER → 2023-11-03 01:57 | Outpatient (CLI) | payer BC, SELFPAY ==
--- NOTE | 2023-11-03 08:30 | DI.RAD_ITS ---
Exam(s) XR ANKLE LT COMPLETE EXAM: XR ANKLE LT COMPLETE CLINICAL HISTORY: LEFT POSTERIOR TIBIAL TENDON INSUFFIENCY, M76.822 TECHNIQUE: 2D digital imaging was performed. Three views. COMPARISON: No exams were available for comparison FINDINGS: BONES: No acute fracture is present. No bony destructive lesion is seen. JOINTS:The ankle mortise is normally aligned. No tibiotalar joint space narrowing. SOFT TISSUE: Swelling below medial malleolus. IMPRESSION: Medial soft tissue swelling. DATA REPOSITORY: RADIATION DOSE DELIVERED:
--- NOTE | 2023-11-03 08:30 | DI.RAD_ITS ---
Exam(s) XR FOOT LT COMPLETE EXAM: XR FOOT LT COMPLETE CLINICAL HISTORY: LEFT POSTERIOR TIBIAL TENDON INSUFFICIENCY, M76.822. TECHNIQUE: 2D digital imaging was performed. Three views. COMPARISON: No exams were available for comparison FINDINGS: BONES: No acute fracture is present. No bony destructive lesion is seen. Accessory navicular. JOINTS: No dislocation present. SOFT TISSUE: Normal. IMPRESSION: Unremarkable radiographs of the left foot. DATA REPOSITORY: RADIATION DOSE DELIVERED:
== END ==
PROVIDERS: PCP Nurse Practitioner; Visit Provider Student in an Organized Health Care Education/Training Program
DX: M76.822 Posterior tibial tendinitis, left leg (principal)
CPT/HCPCS: 73610; 73630

== ENCOUNTER 2023-11-19 05:11 | Outpatient (CLI) | payer BC, SELFPAY ==
[2023-11-19 09:32] LABS: Abs Immature Grans 0.01 10^3/uL (0.0-0.06); Absolute Basophil Count 0.08 10^3/uL (0.0-0.2); Absolute Eosinophil Count 0.51 10^3/uL (0.0-0.7); Absolute Monocyte Count 0.55 10^3/uL (0.1-0.8); Absolute Neutrophil Count 4.61 10^3/uL (1.2-6.7); Eosinophils % 6.4; HCT 41.5 % (36.0-46.0); HGB 13.9 g/dL (11.2-15.7); Immature Grans % 0.1; Lymphocytes % 27.6; MCH 28.8 pg (27.0-33.0); MCHC 33.5 % (32.0-36.0); MCV 86 fL (80-95); MPV 11.3 fL (8.0-11.0); Monocytes % 6.9; Platelet Count 314 10^3/uL (130-400); RBC 4.83 10^6/uL (3.93-5.22); RDW 12.3 % (11.7-14.6); RDW-SD 38.5 fL; WBC 7.96 10^3/uL (4.4-10.8)
[2023-11-19 10:30] LABS: ALT 55 U/L (14-59); AST 17 U/L (15-37); Albumin 3.9 g/dL (3.4-5.0); Alkaline Phosphatase 145 U/L (46-116); Anion Gap 9.1 mmol/L (3-11); BUN 15 mg/dL (7-18); Bilirubin, Total 0.7 mg/dL (0.2-1.0); CO2 27.9 mmol/L (21.0-32.0); CREATININE 0.8 mg/dL (0.55-1.02); Calcium 9.2 mg/dL (8.5-10.1); Calculated LDL 107 mg/dL (<100); Chloride 104 mmol/L (98-107); Cholesterol 175 mg/dL (<200); Estimated GFR 98.48 (mL/min/1.73m2); Glucose 94 mg/dL (74-106); HDL Cholesterol 49 mg/dL (40-60); Potassium 4.4 mmol/L (3.5-5.1); Sodium 141 mmol/L (136-145); Total Protein 7.5 g/dL (6.4-8.2); Triglyceride 95 mg/dL (<150)
[2023-11-19 18:53] LABS: Hepatitis C Ab w Rflx HCV PCR Negative (Negative)
[2023-11-20 09:41] LABS: HIV-1/2 Ag & Ab Screen Negative (Negative)
[2023-11-26 12:32] LABS: Testosterone, Free 0.64 ng/dL (<0.13-1.00); Testosterone, Total 27 ng/dL (8-60)
== END 2023-11-19 05:12 | disposition home or self-care (01) ==
LOC: LBO 05:11
PROVIDERS: PCP Nurse Practitioner; Referring Provider Nurse Practitioner; Visit Provider Nurse Practitioner
DX: R53.83 Other fatigue (principal); F11.20 Opioid dependence, uncomplicated; F41.8 Other specified anxiety disorders; R41.840 Attention and concentration deficit; L70.8 Other acne; Z79.899 Other long term (current) drug therapy; Z11.4 Encounter for screening for human immunodeficiency virus [HIV]; Z11.59 Encounter for screening for other viral diseases
CPT/HCPCS: 36415; 80053; 80061; 84402; 84403; 86803; 87389; 85025

== ENCOUNTER → 2023-12-03 01:36 | Outpatient (CLI) | payer BC, SELFPAY ==
--- NOTE | 2023-12-03 13:45 | DI.MRI_ITS ---
Exam(s) MR LOWER JOINT LT WO EXAM: MR LOWER JOINT LT WO CLINICAL HISTORY: PAIN,insufficiency lt posterior tibial tendon,M76.822 TECHNIQUE: Multiplanar multisequence MRI was performed without intravenous contrast. COMPARISON: CR XR ANKLE LT COMPLETE from 11/03/2023 CR XR FOOT LT COMPLETE from 11/03/2023 FINDINGS: BONES/JOINTS: No fracture or contusion pattern. No bone lesions identified. The talar dome is smooth. The ankle mortise is maintained. No joint effusion is present. There is a os tibialis externum prese nt which measures 1.1 x 0.9 cm. The posterior tibialis tendon inserts onto the accessory os. There is mild increased edema in the accessory os. There is mild thickening of the posterior tibialis tend on and minimal increased signal on the T2 weighted images. There is fluid surrounding the posterior tibialis tendon. There is no evidence of a complete tear. The remainder of the tendon is unremarkab le. LIGAMENTS: The tibiofibular and calcaneofibular ligaments are intact. The talofibular ligaments are i ntact. The deltoid ligament is intact. The syndesmosis is unremarkable. Sinus tarsi is normal. MUSCULOTENDINOUS STRUCTURES: Achilles tendon: Unremarkable. Plantar fascia: Unremarkable. Anterior Extensor tendons: Unremarkable. Posterior Tibialis: Please see above under bones/joints:. Flexor Digitorum longus: Unremarkable. Flexor Hallucis longus: Unremarkable. Peroneus longus: Unremarkable. Peroneus brevis:Unremarkable. SOFT TISSUES: Unremarkable. OTHER FINDINGS: None. IMPRESSION: 1. Tenosynovitis of the posterior tibialis tendon. There is an accessory navicular with marrow edema . This can be seen with accessory navicular syndrome. 2. No other evidence of a tendon or ligament tear. DATA REPOSITORY:
== END ==
PROVIDERS: PCP Nurse Practitioner; Visit Provider Student in an Organized Health Care Education/Training Program
DX: M76.822 Posterior tibial tendinitis, left leg (principal)
CPT/HCPCS: 73721

== ENCOUNTER 2024-08-05 13:53 | Outpatient (CLI) | payer BC, SELFPAY ==
[2024-08-05 14:08] LABS: Abs Immature Grans 0.03 10^3/uL (0.0-0.06); Absolute Basophil Count 0.09 10^3/uL (0.0-0.2); Absolute Eosinophil Count 0.38 10^3/uL (0.0-0.7); Absolute Lymphocyte Count 2.98 10^3/uL (1.2-3.4); Absolute Monocyte Count 0.68 10^3/uL (0.1-0.8); Absolute Neutrophil Count 6.58 10^3/uL (1.2-6.7); Basophils % 0.8 %; Eosinophils % 3.5 %; HCT 41.2 % (36.0-46.0); HGB 13.8 g/dL (11.2-15.7); Immature Grans % 0.3 %; Lymphocytes % 27.7 %; MCH 29.5 pg (27.0-33.0); MCHC 33.5 % (32.0-36.0); MCV 88 fL (80-95); MPV 10.7 fL (8.0-11.0); Monocytes % 6.3 %; Neutrophils % 61.4 %; Platelet Count 367 10^3/uL (130-400); RBC 4.68 10^6/uL (3.93-5.22); RDW 12.5 % (11.7-14.6); RDW-SD 41.1 fL; WBC 10.74 10^3/uL (4.4-10.8)
[2024-08-05 14:10] LABS: ESR 7 mm/hr (0-20)
[2024-08-05 15:21] LABS: ALT 56 U/L (14-59); AST 51 U/L (15-37); Albumin 4.2 g/dL (3.4-5.0); Alkaline Phosphatase 99 U/L (46-116); Anion Gap 6.2 mmol/L (3-11); BUN 15 mg/dL (7-18); Bilirubin, Total 0.65 mg/dL (0.2-1.0); CO2 30.8 mmol/L (21.0-32.0); CREATININE 0.9 mg/dL (0.55-1.02); Calcium 9.6 mg/dL (8.5-10.1); Chloride 100 mmol/L (98-107); Estimated GFR 84.97 (mL/min/1.73m2); Glucose 87 mg/dL (74-106); Potassium 3.7 mmol/L (3.5-5.1); Sodium 137 mmol/L (136-145); TSH (W/Ref FT4) 3.01 uIU/mL (0.36-3.74); Total Protein 8.4 g/dL (6.4-8.2); Vitamin B12 698 pg/mL (193-986); Vitamin D 25 Total 25.8 ng/mL (30-100)
[2024-08-05 15:29] LABS: C-Reactive Protein < 0.50 mg/dL (<or=0.5)
[2024-08-05 22:29] LABS: Rheumatoid Factor <8.6 IU/mL (<12.0)
[2024-08-06 10:06] LABS: Cyclic Citrullinated Peptide <2.5 U/mL (<5.0)
[2024-08-06 11:36] LABS: Lyme Ab w Rflx to Lyme Confirm Negative (Negative)
[2024-08-06 14:51] LABS: ANA Interpretation Negative (Negative)
[2024-08-08 15:03] LABS: Anaplasma phagocytophilum Negative (Negative); B. miyamotoi PCR Negative (Negative); Babesia divergens/MO-1 Negative (Negative); Babesia duncani Negative (Negative); Babesia microti Negative (Negative); Ehrlichia chaffeensis Negative (Negative); Ehrlichia ewingii/canis Negative (Negative); Ehrlichia muris eauclairensis Negative (Negative)
== END 2024-08-05 13:54 | disposition home or self-care (01) ==
LOC: LBO 13:54
PROVIDERS: PCP Nurse Practitioner; Visit Provider Nurse Practitioner
DX: R53.83 Other fatigue (principal); L65.9 Nonscarring hair loss, unspecified; E55.9 Vitamin D deficiency, unspecified; R59.9 Enlarged lymph nodes, unspecified; I10 Essential (primary) hypertension
CPT/HCPCS: 36415; 80053; 82306; 85652; 86200; 87798; 82607; 84443; 85025; 86038; 86140; 86431; 86618

== ENCOUNTER 2024-09-06 11:54 | Outpatient (REF) | payer BC, SELFPAY | END 2024-09-06 11:55 | disposition home or self-care (01) | LOC: LBN 11:54 | PROVIDERS: PCP Nurse Practitioner; Visit Provider Nurse Practitioner | DX: R53.81 Other malaise (principal); R53.83 Other fatigue; R21 Rash and other nonspecific skin eruption; R79.9 Abnormal finding of blood chemistry, unspecified | CPT/HCPCS: 87086 ==

== ENCOUNTER 2024-09-06 13:51 | Outpatient (CLI) | payer BC, SELFPAY ==
[2024-09-06 12:09] LABS: Abs Immature Grans 0.03 10^3/uL (0.0-0.06); Absolute Eosinophil Count 0.38 10^3/uL (0.0-0.7); Absolute Lymphocyte Count 1.92 10^3/uL (1.2-3.4); Absolute Monocyte Count 0.65 10^3/uL (0.1-0.8); Basophils % 1.2 %; Eosinophils % 4.6 %; HCT 39.4 % (36.0-46.0); HGB 13.3 g/dL (11.2-15.7); Immature Grans % 0.4 %; Lymphocytes % 23.2 %; MCH 29.6 pg (27.0-33.0); MCHC 33.8 % (32.0-36.0); MCV 88 fL (80-95); MPV 10.4 fL (8.0-11.0); Monocytes % 7.9 %; Neutrophils % 62.7 %; Platelet Count 315 10^3/uL (130-400); RBC 4.49 10^6/uL (3.93-5.22); RDW 12.7 % (11.7-14.6); RDW-SD 41.2 fL; WBC 8.28 10^3/uL (4.4-10.8)
[2024-09-06 12:11] LABS: ESR 9 mm/hr (0-20)
[2024-09-06 12:35] LABS: ALT 30 U/L (14-59); AST 20 U/L (15-37); Alkaline Phosphatase 74 U/L (46-116); Anion Gap 7.3 mmol/L (3-11); BUN 11 mg/dL (7-18); Bilirubin, Total 0.38 mg/dL (0.2-1.0); CO2 28.7 mmol/L (21.0-32.0); CREATININE 0.9 mg/dL (0.55-1.02); Calcium 9.1 mg/dL (8.5-10.1); Chloride 102 mmol/L (98-107); Estimated GFR 84.97 (mL/min/1.73m2); Glucose 108 mg/dL (74-106); Potassium 3.6 mmol/L (3.5-5.1); Sodium 138 mmol/L (136-145); Total Protein 7.9 g/dL (6.4-8.2)
== END 2024-09-06 13:52 | disposition home or self-care (01) ==
LOC: LBO 13:51
PROVIDERS: PCP Nurse Practitioner; Visit Provider Nurse Practitioner
DX: R21 Rash and other nonspecific skin eruption (principal); R53.83 Other fatigue; R79.9 Abnormal finding of blood chemistry, unspecified
CPT/HCPCS: 36415; 80053; 85652; 85025

== ENCOUNTER 2024-09-23 15:01 | Outpatient (RCR) | payer BC, SELFPAY ==
--- NOTE | 2024-09-30 08:16 | HOLT_ITS ---
Date of service: 09/30/24 Time of Service: 08:16 Holter Monitor Report Referring Provider:: Sunshine Kelly Indications:: Palpitations Holter Monitor Note: This is a 48-hour Holter monitor. Rhythm throughout was sinus with an average heart rate of 104. Minimum was 67, maximum 169. Heart rates during sleep were generally 80-90, while awake 100- 125. There were very rare isolated atrial and ventricular ectopic beats. There was no atrial fibrillation, no high-grade AV block, no SVT, no pauses greater than 3 seconds. Symptoms were reported which correlated to sinus rhythm and sinus tachycardia
== END 2024-10-01 23:59 | disposition home or self-care (01) ==
LOC: CARDOPNVT 15:01
PROVIDERS: PCP Nurse Practitioner; Visit Provider Internal Medicine Cardiovascular Disease
DX: R00.2 Palpitations (principal)
CPT/HCPCS: 93225; 93226